=== PATIENT | female | born 1960 | race Hispanic/Latino ===

== ENCOUNTER 2020-05-29 10:03 | Inpatient (IN) | payer MEDICAID, OTHER ==
[~2020-05-29] VITALS: Ht 154.9 cm; Wt 83.2 kg
[2020-05-29] MEDS ORDERED: ORPHENADRINE CITRATE 30 MG/ML ML ONE (11:11)
[2020-05-29] MEDS ORDERED: KETOROLAC TROMETHAMINE 30MG/ML ONE (11:12)
[2020-05-29] MEDS ORDERED: OXYCODONE/ACETAMIN 5/325MG TAB ONE (13:31)
[2020-05-29 15:22] LABS: BASOPHILS % (AUTO) 0.4 % (0.0-5.0); EOSINOPHILS % (AUTO) 1.5 % (0.0-8.0); HEMATOCRIT 40.8 % (36-48); MEAN CORPUSCULAR HEMOGLOBIN 28.9 pg (27.0-33.0); MEAN CORPUSCULAR HGB CONC 32.6 g/dL (32.0-36.0); MEAN CORPUSCULAR VOLUME 88.7 fL (79-99); MONOCYTES % (AUTO) 5.5 % (3.0-13.0); NEUTROPHILS % (AUTO) 48.4 % (40.0-77.0); PLATELET COUNT (AUTO) 277 K/uL (130-400); WHITE BLOOD COUNT (AUTO) 8.2 K/uL (4.8-10.8)
[2020-05-29 15:39] LABS: ALBUMIN 3.3 g/dL (3.5-5.0); BILIRUBIN,TOTAL 0.4 mg/dL (0.2-1.0); CREATININE 0.8 mg/dL (0.5-1.5); POTASSIUM 5.5 mmol/L (3.5-5.1); TOTAL PROTEIN, SERUM 7.3 g/dL (6.0-8.3)
[2020-05-29] MEDS ORDERED: MORPHINE SULFATE 4 MG/1ML SYG ONE (15:52)
[2020-05-29] MEDS ORDERED: DEXAMETHASONE SOD PHOSPHATE 10MG/ML 1ML VIAL ONE (18:00)
[2020-05-29] MEDS: SODIUM CHLORIDE 0.9% 1000ML 1,000 ML IV SCH (18:15)
[2020-05-29] MEDS ORDERED: MAG HYDROX/AL HYDROX/SIMETH ES 30 ML SUSP UDCUP PO PRN (18:15)
[2020-05-29] MEDS ORDERED: DEXAMETHASONE 10MG/ML 1ML VIAL 0 MG in SODIUM CHLORIDE 0.9% 50 ML IV SCH (18:15)
[2020-05-29] MEDS ORDERED: GUAIFENESIN-DM 200/20 MG 10 ML PO PRN (18:15)
[2020-05-29] MEDS ORDERED: ACETAMINOPHEN 325 MG TAB PO PRN ×2 (18:15)
[2020-05-29] MEDS ORDERED: NITROGLYCERIN 0.4 MG SL TAB SL PRN (18:15)
[2020-05-29] MEDS ORDERED: DiphenhydrAMINE HCL 50 MG/ML VIAL IV PRN (18:15)
[2020-05-29] MEDS ORDERED: DIPHENHYDRAMINE HCL 25 MG CAPSULE PO PRN (18:15)
[2020-05-29 18:29] LABS: HEMOGLOBIN A1C 8.6 % (4.0-6.0)
[2020-05-29 19:24] LABS: CREATININE 0.9 mg/dL (0.5-1.5); POTASSIUM 4.1 mmol/L (3.5-5.1)
[2020-05-29] MEDS ORDERED: SODIUM CHLORIDE 0.9% 1000ML 1,000 ML IV ONE (19:30)
[2020-05-29] MEDS ORDERED: FAMOTIDINE 20MG TAB 20 MG TAB ONE (20:44)
[2020-05-29] MEDS ORDERED: INSULIN HUMULIN R 100 UNIT/ML 3ML ONE (20:44)
[2020-05-29] MEDS: FAMOTIDINE 20MG TAB 20 MG TAB PO SCH (21:00)
[2020-05-29] MEDS: INSULIN GLARGINE 100 UNITS/ML 10 ML VIAL SQ SCH (21:00)
[2020-05-29] MEDS: INSULIN HUMULIN R 100 UNIT/ML 3ML SQ SCH (21:00)
[2020-05-30] MEDS ORDERED: ONDANSETRON HCL 4 MG/2 ML VIAL ONE ×2 (00:09→15:27)
[2020-05-30] MEDS ORDERED: MORPHINE SULFATE 4 MG/1ML SYG ONE (00:10)
[2020-05-30] MEDS: SODIUM CHLORIDE 0.9% 1000ML 1,000 ML IV SCH ×2 (04:15→14:15)
[2020-05-30 06:52] LABS: BASOPHILS % (AUTO) 0.2 % (0.0-5.0); HEMATOCRIT 40.5 % (36-48); LYMPHOCYTES % (AUTO) 15.1 % (21.0-51.0); MEAN CORPUSCULAR HEMOGLOBIN 28.4 pg (27.0-33.0); MEAN CORPUSCULAR HGB CONC 32.1 g/dL (32.0-36.0); MEAN CORPUSCULAR VOLUME 88.4 fL (79-99); MONOCYTES % (AUTO) 2.4 % (3.0-13.0); NEUTROPHILS % (AUTO) 82.1 % (40.0-77.0); PLATELET COUNT (AUTO) 289 K/uL (130-400); RED BLOOD CELL COUNT(AUTO) 4.58 MIL/uL (4.00-5.50); RED CELL DISTRIBUTION WIDTH 12.9 % (11.0-15.5); WHITE BLOOD COUNT (AUTO) 10.2 K/uL (4.8-10.8)
[2020-05-30 07:05] LABS: ALBUMIN 3.1 g/dL (3.5-5.0); BILIRUBIN,TOTAL 0.4 mg/dL (0.2-1.0); CREATININE 0.7 mg/dL (0.5-1.5); POTASSIUM 4.4 mmol/L (3.5-5.1); TOTAL PROTEIN, SERUM 6.8 g/dL (6.0-8.3)
[2020-05-30] MEDS: INSULIN HUMULIN R 100 UNIT/ML 3ML SQ SCH ×7 (07:30→21:00)
[2020-05-30] MEDS ORDERED: FAMOTIDINE 20MG TAB 20 MG TAB ONE ×2 (08:37→20:41)
[2020-05-30] MEDS ORDERED: ENOXAPARIN SODIUM 30 MG/0.3 ML SQ ONE (08:37)
[2020-05-30] MEDS: ENOXAPARIN SODIUM 30 MG/0.3 ML SQ SCH (09:00)
[2020-05-30] MEDS: FAMOTIDINE 20MG TAB 20 MG TAB PO SCH ×2 (09:00→21:00)
[2020-05-30] MEDS ORDERED: ACETAMINOPHEN 325 MG TAB ONE (10:02)
[2020-05-30] MEDS ORDERED: INSULIN HUMULIN R 100 UNIT/ML 3ML ONE ×2 (13:28→17:01)
[2020-05-30] MEDS ORDERED: MORPHINE SULFATE 2 MG/ML 1ML SYG ONE ×2 (15:27→20:42)
[2020-05-30] MEDS: INSULIN GLARGINE 100 UNITS/ML 10 ML VIAL SQ SCH (21:00)
[2020-05-30 23:30] VITALS: BP 128/56
[2020-05-31] MEDS: SODIUM CHLORIDE 0.9% 1000ML 1,000 ML IV SCH ×3 (00:15→20:42)
[2020-05-31] MEDS ORDERED: ACET325T51 PO (03:19)
[2020-05-31] MEDS ORDERED: LORA10TA7 PO (03:19)
[2020-05-31] MEDS ORDERED: OMEP40CA13 PO (03:19)
[2020-05-31] MEDS ORDERED: BISA5TAB12 PO (03:19)
[2020-05-31] MEDS ORDERED: INSU100V12 SQ ×2 (03:19)
[2020-05-31] MEDS ORDERED: GABA300C PO (03:19)
[2020-05-31] MEDS ORDERED: METO5TAB2 PO (03:19)
[2020-05-31] MEDS ORDERED: DULA0.75 SQ (03:19)
[2020-05-31] MEDS ORDERED: LOSA50TA64 PO (03:19)
[2020-05-31] MEDS ORDERED: ERTU1TAB11 PO (03:19)
[2020-05-31] MEDS ORDERED: ATOR40TA71 PO (03:19)
[2020-05-31] MEDS ORDERED: TOLT4CAP13 PO (03:19)
[2020-05-31] MEDS ORDERED: FAMO40TA7 PO (03:19)
[2020-05-31] MEDS ORDERED: INSU100V IV (03:19)
[2020-05-31 04:00] VITALS: BP 119/69
[2020-05-31] MEDS ORDERED: CYCLOBENZAPRINE HCL 10 MG TABLET PO SCH ×3 (05:30→11:00)
[2020-05-31] MEDS: DEXAMETHASONE 4 MG TAB PO SCH ×4 (06:00→23:45)
[2020-05-31 06:18] LABS: BASOPHILS % (AUTO) 0.1 % (0.0-5.0); HEMATOCRIT 38.1 % (36-48); MEAN CORPUSCULAR HEMOGLOBIN 28.7 pg (27.0-33.0); MEAN CORPUSCULAR HGB CONC 32.3 g/dL (32.0-36.0); MEAN CORPUSCULAR VOLUME 88.8 fL (79-99); MONOCYTES % (AUTO) 5.5 % (3.0-13.0); NEUTROPHILS % (AUTO) 45.2 % (40.0-77.0); PLATELET COUNT (AUTO) 258 K/uL (130-400); RED BLOOD CELL COUNT(AUTO) 4.29 MIL/uL (4.00-5.50); RED CELL DISTRIBUTION WIDTH 12.9 % (11.0-15.5); WHITE BLOOD COUNT (AUTO) 8.1 K/uL (4.8-10.8)
[2020-05-31 06:36] LABS: BILIRUBIN,TOTAL 0.5 mg/dL (0.2-1.0); CREATININE 0.7 mg/dL (0.5-1.5); POTASSIUM 3.6 mmol/L (3.5-5.1); TOTAL PROTEIN, SERUM 6.4 g/dL (6.0-8.3)
[2020-05-31] MEDS: INSULIN HUMULIN R 100 UNIT/ML 3ML SQ SCH ×7 (07:07→20:43)
[2020-05-31] MEDS: MORPHINE SULFATE 2 MG/ML 1ML SYG IV PRN ×3 (08:41→20:49)
[2020-05-31] MEDS: ENOXAPARIN SODIUM 30 MG/0.3 ML SQ SCH (08:44)
[2020-05-31] MEDS: FAMOTIDINE 20MG TAB 20 MG TAB PO SCH ×2 (08:44→20:43)
[2020-05-31] MEDS: PREGABALIN 25 MG CAP PO SCH ×3 (08:44→20:43)
[2020-05-31 09:49] VITALS: BP 146/77
[2020-05-31] MEDS ORDERED: CLINDAMYCIN PHOSPHATE 150 MG/ML 6ML VIAL ONE (09:49)
[2020-05-31] MEDS ORDERED: SUCCINYLCHOLINE CHLORIDE 20 MG/ML 10 ML VIAL ONE (09:52)
[2020-05-31] MEDS ORDERED: LIDOCAINE PF 2% 5ML ABBOJECT ONE (09:52)
[2020-05-31] MEDS ORDERED: ONDANSETRON HCL 4 MG/2 ML VIAL ONE (09:53)
[2020-05-31] MEDS ORDERED: PROPOFOL 10 MG/ML 20ML VIAL IV ONE (09:54)
[2020-05-31] MEDS ORDERED: MIDAZOLAM HCL 1 MG/ML 2ML VIAL ONE (09:54)
[2020-05-31] MEDS ORDERED: VANCOMYCIN HCL 1 GM VIAL ONE (09:59)
[2020-05-31] MEDS ORDERED: TOBRAMYCIN SULFATE 40MG/1ML VIAL ONE (10:00)
[2020-05-31] MEDS ORDERED: ROCURONIUM 10MG/1ML SYR 10 MG/ML ML ONE (10:07)
[2020-05-31] MEDS ORDERED: CLINDAMYCIN 900 MG/D5% WATER 0 ML IV ONE (10:57)
[2020-05-31] MEDS: CYCLOBENZAPRINE HCL 10 MG TABLET PO SCH ×4 (11:00→20:42)
[2020-05-31 13:28] VITALS: BP 125/73
[2020-05-31 17:57] VITALS: BP 132/75
[2020-05-31 19:30] VITALS: BP 120/64
[2020-05-31] MEDS: INSULIN GLARGINE 100 UNITS/ML 10 ML VIAL SQ SCH (20:46)
[2020-06-01] VITALS (7 sets, daily range): BP systolic 119–146; BP diastolic 58–79
[2020-06-01 05:28] LABS: BASOPHILS % (AUTO) 0.2 % (0.0-5.0); HEMATOCRIT 40.7 % (36-48); LYMPHOCYTES % (AUTO) 12.1 % (21.0-51.0); MEAN CORPUSCULAR HEMOGLOBIN 28.7 pg (27.0-33.0); MEAN CORPUSCULAR HGB CONC 32.7 g/dL (32.0-36.0); MEAN CORPUSCULAR VOLUME 87.7 fL (79-99); MONOCYTES % (AUTO) 0.9 % (3.0-13.0); NEUTROPHILS % (AUTO) 86.2 % (40.0-77.0); PLATELET COUNT (AUTO) 288 K/uL (130-400); RED BLOOD CELL COUNT(AUTO) 4.64 MIL/uL (4.00-5.50); RED CELL DISTRIBUTION WIDTH 12.5 % (11.0-15.5); WHITE BLOOD COUNT (AUTO) 9.8 K/uL (4.8-10.8)
[2020-06-01 05:59] LABS: ALBUMIN 3.2 g/dL (3.5-5.0); BILIRUBIN,TOTAL 0.4 mg/dL (0.2-1.0); CREATININE 0.8 mg/dL (0.5-1.5); POTASSIUM 4.6 mmol/L (3.5-5.1); TOTAL PROTEIN, SERUM 6.8 g/dL (6.0-8.3)
[2020-06-01] MEDS: SODIUM CHLORIDE 0.9% 1000ML 1,000 ML IV SCH ×3 (06:13→23:44)
[2020-06-01] MEDS: DEXAMETHASONE 4 MG TAB PO SCH ×4 (06:13→23:04)
[2020-06-01] MEDS: INSULIN HUMULIN R 100 UNIT/ML 3ML SQ SCH ×7 (06:16→19:59)
[2020-06-01] MEDS: TOLTERODINE TARTRATE 4 MG PO SCH (09:00)
[2020-06-01] MEDS: ENOXAPARIN SODIUM 30 MG/0.3 ML SQ SCH (09:00)
[2020-06-01] MEDS: BISACODYL 5 MG TABLET.DR PO SCH (09:55)
[2020-06-01] MEDS: CYCLOBENZAPRINE HCL 10 MG TABLET PO SCH ×3 (09:55→19:56)
[2020-06-01] MEDS: PREGABALIN 25 MG CAP PO SCH ×3 (09:57→19:56)
[2020-06-01] MEDS: FAMOTIDINE 20MG TAB 20 MG TAB PO SCH ×3 (09:57→19:56)
[2020-06-01] MEDS: LACTULOSE 20 GM/30 ML UDCUP PO PRN ×2 (13:10→23:39)
[2020-06-01] MEDS: MORPHINE SULFATE 2 MG/ML 1ML SYG IV PRN (15:07)
[2020-06-01] MEDS: ATORVASTATIN CALCIUM 40 MG TABLET PO SCH (19:56)
[2020-06-01] MEDS: INSULIN GLARGINE 100 UNITS/ML 10 ML VIAL SQ SCH (19:59)
[2020-06-02] VITALS (24 sets, daily range): BP systolic 117–161; BP diastolic 68–91
[2020-06-02] MEDS: DEXAMETHASONE 4 MG TAB PO SCH ×4 (05:10→23:53)
[2020-06-02] MEDS: INSULIN HUMULIN R 100 UNIT/ML 3ML SQ SCH ×7 (06:38→20:29)
[2020-06-02] MEDS: CYCLOBENZAPRINE HCL 10 MG TABLET PO SCH ×3 (09:00→20:11)
[2020-06-02] MEDS: PREGABALIN 25 MG CAP PO SCH ×3 (09:00→20:11)
[2020-06-02] MEDS: ENOXAPARIN SODIUM 30 MG/0.3 ML SQ SCH (09:00)
[2020-06-02] MEDS: TOLTERODINE TARTRATE 4 MG PO SCH (09:00)
[2020-06-02] MEDS: FAMOTIDINE 20MG TAB 20 MG TAB PO SCH ×3 (09:00→20:10)
[2020-06-02] MEDS: BISACODYL 5 MG TABLET.DR PO SCH (09:00)
[2020-06-02] MEDS ORDERED: VANCOMYCIN HCL 1 GM VIAL ONE (10:43)
[2020-06-02] MEDS ORDERED: BUPIVACAINE/PF 0.25% 10ML VIAL IJ ONE (10:44)
[2020-06-02] MEDS ORDERED: TOBRAMYCIN SULFATE 40MG/1ML VIAL ONE (10:44)
[2020-06-02] MEDS ORDERED: CLINDAMYCIN PHOSPHATE 150 MG/ML 6ML VIAL ONE (10:44)
[2020-06-02] MEDS: MORPHINE SULFATE 2 MG/ML 1ML SYG IV PRN ×4 (10:49→22:41)
[2020-06-02] MEDS ORDERED: THROMBIN-JMI 20000 UNIT KIT TP ONE (10:52)
[2020-06-02] MEDS ORDERED: CLINDAMYCIN 900 MG/D5% WATER 50 ML IV ONE (11:22)
[2020-06-02] MEDS ORDERED: MIDAZOLAM HCL 1 MG/ML 2ML VIAL ONE (11:25)
[2020-06-02] MEDS ORDERED: FENTANYL CITRATE PF 50 MCG/1 ML 2ML VIAL ONE ×2 (11:26→12:26)
[2020-06-02] MEDS ORDERED: PROPOFOL 10 MG/ML 20ML VIAL IV ONE ×2 (11:26→12:24)
[2020-06-02] MEDS ORDERED: TRANEXAMIC ACID 1000MG/10ML ONE (12:14)
[2020-06-02] MEDS: SODIUM CHLORIDE 0.9% 1000ML 1,000 ML IV SCH ×2 (12:15→22:41)
[2020-06-02] MEDS ORDERED: PHENYLEPHRINE HCL 10 MG/ML 1ML VIAL IV ONE (12:42)
[2020-06-02] MEDS: ONDANSETRON HCL 4 MG/2 ML VIAL IV PRN ×2 (18:06→23:53)
[2020-06-02] MEDS: ATORVASTATIN CALCIUM 40 MG TABLET PO SCH (20:10)
[2020-06-02] MEDS: INSULIN GLARGINE 100 UNITS/ML 10 ML VIAL SQ SCH (20:29)
[2020-06-03 00:27] VITALS: BP 121/75
[2020-06-03 04:33] VITALS: BP 129/66
[2020-06-03] MEDS: DEXAMETHASONE 4 MG TAB PO SCH ×3 (06:19→17:22)
[2020-06-03] MEDS: INSULIN HUMULIN R 100 UNIT/ML 3ML SQ SCH ×7 (06:27→21:09)
[2020-06-03 08:00] VITALS: BP 139/72
[2020-06-03] MEDS: SODIUM CHLORIDE 0.9% 1000ML 1,000 ML IV SCH (08:15)
[2020-06-03] MEDS: TOLTERODINE TARTRATE 4 MG PO SCH (09:00)
[2020-06-03] MEDS: ENOXAPARIN SODIUM 30 MG/0.3 ML SQ SCH (09:14)
[2020-06-03] MEDS: BISACODYL 5 MG TABLET.DR PO SCH (09:15)
[2020-06-03] MEDS: FAMOTIDINE 20MG TAB 20 MG TAB PO SCH ×3 (09:15→20:44)
[2020-06-03] MEDS: PREGABALIN 25 MG CAP PO SCH ×3 (09:15→20:44)
[2020-06-03] MEDS: CYCLOBENZAPRINE HCL 10 MG TABLET PO SCH ×3 (09:15→20:45)
[2020-06-03] MEDS: MORPHINE SULFATE 2 MG/ML 1ML SYG IV PRN ×2 (09:17→20:45)
[2020-06-03 12:00] VITALS: BP 145/80
[2020-06-03 16:00] VITALS: BP 128/80
[2020-06-03 19:00] VITALS: BP 114/56
[2020-06-03] MEDS: ATORVASTATIN CALCIUM 40 MG TABLET PO SCH (20:44)
[2020-06-03] MEDS: INSULIN GLARGINE 100 UNITS/ML 10 ML VIAL SQ SCH (21:08)
[2020-06-04] VITALS: BP 99/60
[2020-06-04] MEDS: DEXAMETHASONE 4 MG TAB PO SCH ×3 (00:24→11:59)
[2020-06-04] MEDS: SODIUM CHLORIDE 0.9% 1000ML 1,000 ML IV SCH ×3 (00:25→14:15)
[2020-06-04 04:00] VITALS: BP 139/78
[2020-06-04] MEDS: MORPHINE SULFATE 2 MG/ML 1ML SYG IV PRN (06:15)
[2020-06-04] MEDS: INSULIN HUMULIN R 100 UNIT/ML 3ML SQ SCH ×4 (06:29→12:05)
[2020-06-04 07:46] VITALS: BP 145/85
[2020-06-04] MEDS: FAMOTIDINE 20MG TAB 20 MG TAB PO SCH (09:12)
[2020-06-04] MEDS: CYCLOBENZAPRINE HCL 10 MG TABLET PO SCH ×2 (09:12→15:11)
[2020-06-04] MEDS: PREGABALIN 25 MG CAP PO SCH ×2 (09:12→15:12)
[2020-06-04] MEDS: BISACODYL 5 MG TABLET.DR PO SCH (09:13)
[2020-06-04] MEDS: ENOXAPARIN SODIUM 30 MG/0.3 ML SQ SCH (09:15)
[2020-06-04] MEDS: TOLTERODINE TARTRATE 4 MG PO SCH (09:20)
[2020-06-04 11:37] VITALS: BP 135/83
== END 2020-06-04 16:00 | disposition home or self-care (01) | DRG 472 ==
LOC: EDH 10:03 → EDHIP 18:03 → 4AH 05-30 23:35
PROVIDERS: ADMIT Family Medicine; ATTEND Family Medicine
PROC: 0RG20A0 Fusion of 2 or more Cervical Vertebral Joints with Interbody Fusion Device, Anterior Approach, Anterior Column, Open Approach (ICD-10-PCS; principal; 2020-06-03)
PROC: 0RB30ZZ Excision of Cervical Vertebral Disc, Open Approach (ICD-10-PCS; 2020-06-03)
PROC: 00NW0ZZ Release Cervical Spinal Cord, Open Approach (ICD-10-PCS; 2020-06-03)
DX: M47.12 Other spondylosis with myelopathy, cervical region (principal); M50.023 Cervical disc disorder at C6-C7 level with myelopathy; M48.02 Spinal stenosis, cervical region; E87.5 Hyperkalemia; I10 Essential (primary) hypertension; E66.01 Morbid (severe) obesity due to excess calories; Z20.828 Contact with and (suspected) exposure to other viral communicable diseases; E11.65 Type 2 diabetes mellitus with hyperglycemia; E78.5 Hyperlipidemia, unspecified; Z88.0 Allergy status to penicillin; Z79.4 Long term (current) use of insulin; Z68.34 Body mass index [BMI] 34.0-34.9, adult
CPT/HCPCS: 36415; 72020; 72125; 72141; 80048; 80053; 82948; 83036; 85025; 87426; 93005; A4344; G0378; J0330; J1030; J1100; J1650; J1815; J1885; J2001; J2250; J2270; J2370; J2405; J2704; J3010; J3260; J3370; J3490; J7030; J8540; U0003

== ENCOUNTER 2020-06-28 16:34 | Emergency (ER) | payer OTHER ==
[~2020-06-28 16:34] MED LIST: ACET325T51 PO; ATOR40TA71 PO; BISA5TAB12 PO; DULA0.75 SQ; ERTU1TAB11 PO; FAMO40TA7 PO; GABA300C PO; INSU100V IV; INSU100V12 SQ; LORA10TA7 PO; LOSA50TA64 PO; METO5TAB2 PO; OMEP40CA13 PO; TOLT4CAP13 PO
== END 2020-06-28 17:31 | disposition home or self-care (01) ==
LOC: EDH 16:34
DX: Z48.00 Encounter for change or removal of nonsurgical wound dressing (principal); E11.9 Type 2 diabetes mellitus without complications; E78.00 Pure hypercholesterolemia, unspecified; I10 Essential (primary) hypertension; F41.9 Anxiety disorder, unspecified; F32.9 Major depressive disorder, single episode, unspecified; G47.30 Sleep apnea, unspecified; Z90.710 Acquired absence of both cervix and uterus; Z88.0 Allergy status to penicillin
CPT/HCPCS: 99281

== ENCOUNTER → 2020-10-04 | Outpatient (CLI) | payer OTHER | END | disposition home or self-care (01) | LOC: RAH 10:20 | PROVIDERS: ATTEND Internal Medicine Gastroenterology | DX: R13.12 Dysphagia, oropharyngeal phase (principal); R63.3 Feeding difficulties | CPT/HCPCS: 74230; 92611 ==